=== PATIENT | male | born 1940 | race Caucasian/White ===

== ENCOUNTER 2019-07-02 07:30 | Emergency (ER) | payer BC, MEDICARE ==
--- NOTE | 2019-07-02 08:37 | EDM.PDOC ---
ED HPI GENERAL MEDICAL PROBLEM - General Chief Complaint: General Stated Complaint: FEVER, MUSCLE ACHES, UPSET STOMACH Time Seen by Provider: 07/02/19 08:15 Source of Information: Reports: Patient History Limitations: Reports: No Limitations - History of Present Illness INITIAL COMMENTS - FREE TEXT/NARRATIVE: 79-year-old male just returned from [place] 4 days ago, and over the last 24 hours is just felt a little off with some mild muscle aches. He checked his temperature this morning and it was 99.5 so came in to be checked for COVID. He has no respiratory symptoms. He has mild nausea but he did "drink some beer " last night but that usually does not bother him. No diarrhea, no sore throat or headache. He has no known exposure to COVID and his seems fine. He would like to get tested so he can get out and go fishing. Onset: Unknown/Unsure Associated Symptoms: Reports: Other (Low-grade fever, no chills) - Related Data Allergies Allergy/AdvReac Type Severity Reaction Status Date / Time codeine Allergy Itching Verified 07/02/19 07:51 Home Meds: Home Meds Brimonidine Tartrate/Timolol [Combigan Eye Drops] 1 drop EYEBOTH BID 08/03/13 [ History] Omeprazole [Prilosec] 20 mg PO DAILY 08/03/13 [History] Travoprost [Travatan Z 0.004% Ophth Soln] 1 drop EYEBOTH BEDTIME 08/03/13 [ History] Warfarin [Coumadin] 5 mg PO DAILY 08/03/13 [History] Past Medical History HEENT History: Reports: Impaired Vision, Other (See Below) Other HEENT History: [place] Musculoskeletal History: Reports: Arthritis Neurological History: Reports: None Hematologic History: Reports: Anticoagulation Therapy Oncologic (Cancer) History: Reports: Other (See Below) - Infectious Disease History Infectious Disease History: Reports: Chicken Pox, Measles, Mumps, Pertussis ( Whooping Cough), Shingles - Past Surgical History Head Surgeries/Procedures: Reports: None HEENT Surgical History: Reports: Adenoidectomy, Cataract Surgery, Tonsillectomy Neurological Surgical History: Reports: Sacral Spine Musculoskeletal Surgical History: Reports: Hip Replacement, Shoulder Replacement Oncologic Surgical History: Reports: None Social & Family History - Tobacco Use Smoking Status *Q: Former Smoker Used Tobacco, but Quit: Yes Month/Year Tobacco Last Used: 1999 Second Hand Smoke Exposure: No - Caffeine Use Caffeine Use: Reports: Coffee - Recreational Drug Use Recreational Drug Use: No ED ROS GENERAL - Review of Systems Review Of Systems: See Below Constitutional: Reports: Fever, Malaise (Very mild malaise). Denies: Chills HEENT: Reports: No Symptoms Respiratory: Denies: Shortness of Breath, Cough Cardiovascular: Denies: Chest Pain GI/Abdominal: Reports: Nausea. Denies: Abdominal Pain, Vomiting Musculoskeletal: Reports: Muscle Pain (Generalized mild muscle aches) Skin: Reports: No Symptoms Neurological: Reports: No Symptoms. Denies: Dizziness, Headache Psychiatric: Reports: No Symptoms ED EXAM, GENERAL - Physical Exam Exam: See Below Exam Limited By: No Limitations General Appearance: Alert, No Apparent Distress Eye Exam: Bilateral Eye: Normal Inspection Throat/Mouth: Normal Inspection Head: Atraumatic Respiratory/Chest: No Respiratory Distress, Lungs Clear Cardiovascular: Regular Rate, Rhythm Extremities: Normal Inspection. No: Pedal Edema Neurological: Alert, Oriented Psychiatric: Normal Affect, Normal Mood Course - Vital Signs Last Recorded V/S: Last Vital Signs Temp 99.6 F 07/02/19 07:51 Pulse 82 07/02/19 07:51 Resp 16 07/02/19 07:51 BP 169/71 H 07/02/19 07:51 Pulse Ox 94 L 07/02/19 07:51 - Re-Assessments/Exams Free Text/Narrative Re-Assessment/Exam: 07/02/19 08:35 Physical exam is normal and temperature now is 99.6. Patient is now asking if COVID testing is necessary. I told him that if we do a Covid test he should isolate until the results are back which is 48 hours from now and he did not want to do that so changed his mind about getting tested unless he worsens. No further work-up is needed, he will return if his temperature gets over 100 or he starts developing respiratory symptoms. Departure - Departure Time of Disposition: 08:43 Disposition: Home, Self-Care 01 Clinical Impression: Myalgia - Discharge Information Instructions: Muscle Pain, Adult Referrals: PCP,None [Primary Care Provider] - Forms: ED Department Discharge Care Plan Goals: Increase activity as tolerated, and return anytime if worsening such as temperature over 100.5, chills, or developing cough or respiratory symptoms like runny nose or sore throat. Sepsis Event Note - Evaluation Sepsis Screening Result: No Definite Risk - Focused Exam Vital Signs: Vital Signs Temp Pulse Resp BP Pulse Ox 07/02/19 07:51 99.6 F 82 16 169/71 H 94 L 07/02/19 07:49 99.6 F 82 16 169/71 H 94 L Date Exam was Performed: 07/02/19 Time Exam was Performed: 09:18
== END 2019-07-02 08:43 | disposition home or self-care (01) ==
LOC: JP.ED 07:30
DX: M79.10 Myalgia, unspecified site (principal); R11.0 Nausea; Z88.5 Allergy status to narcotic agent; Z79.899 Other long term (current) drug therapy; Z79.01 Long term (current) use of anticoagulants; Z87.891 Personal history of nicotine dependence
CPT/HCPCS: 99283

== ENCOUNTER 2021-08-07 09:29 | Emergency (ER) | payer MEDICARE | END 2021-08-07 12:37 | disposition home or self-care (01) | LOC: JP.ED 09:29 | DX: I44.0 Atrioventricular block, first degree (principal); R00.2 Palpitations; Z88.5 Allergy status to narcotic agent; Z79.899 Other long term (current) drug therapy; Z79.01 Long term (current) use of anticoagulants | CPT/HCPCS: 36415; 71046; 71046-26; 80048; 83735; 83880; 84443; 84484; 85025; 85610; 86618; 93005; 93010; 99283; 99285-25 ==

== ENCOUNTER 2021-09-10 16:27 | Emergency (ER) | payer MEDICARE ==
[2021-09-10 17:46] LABS: ESTIMATED GFR 75 mL/min (>60)
== END 2021-09-10 18:31 | disposition home or self-care (01) ==
LOC: JP.ED 16:27
DX: J40 Bronchitis, not specified as acute or chronic (principal); Z88.5 Allergy status to narcotic agent; Z79.899 Other long term (current) drug therapy; Z20.822 Contact with and (suspected) exposure to COVID-19
CPT/HCPCS: 36415; 80053; 82550; 85025; 86140; 86618; 99283; U0002

== ENCOUNTER 2022-08-20 09:23 | Emergency (ER) | payer MEDICARE ==
[2022-08-20] MEDS ORDERED: Sodium Chloride 0.9% 10 ML Syringe FLUSH PRN (10:07)
[2022-08-20] MEDS ORDERED: Lactated Ringers 1,000 ML IV ONE (10:07)
[2022-08-20 10:20] LABS: BASOPHILS ABSOLUTE AUTO 0.11 K/uL (0.00-0.10); BASOPHILS PERCENT AUTO 0.6 % (0.1-1.3); EOSINOPHILS ABSOLUTE AUTO 0.25 K/uL (0.00-0.40); EOSINOPHILS PERCENT AUTO 1.3 % (0.0-5.4); HEMATOCRIT 48.8 % (38.4-49.7); HEMOGLOBIN 16.1 g/dL (12.9-16.9); IMMATURE GRAN ABSOLUTE AUTO 0.22 K/uL (0.00-0.23); IMMATURE GRAN PERCENT AUTO 1.1 % (0.0-0.7); LYMPHOCYTES ABSOLUTE AUTO 3.62 K/uL (0.8-3.3); LYMPHOCYTES PERCENT AUTO 18.6 % (11.4-47.7); MEAN CORPUSCULAR HEMOGLOBIN 29.5 pg (31.6-35.5); MEAN CORPUSCULAR VOLUME 89.5 fL (81.4-99.0); MONOCYTES PERCENT AUTO 9.7 % (3.3-12.6); NEUTROPHILS ABSOLUTE AUTO 13.39 K/uL (1.0-7.6); NEUTROPHILS PERCENT AUTO 68.7 % (40.0-78.1); PLATELET COUNT,PLT 230 K/uL (130-375); RED BLOOD CELL COUNT 5.45 M/uL (4.14-5.76); WHITE BLOOD CELL COUNT,WBC 19.5 K/uL (3.2-11.0)
[2022-08-20 10:30] LABS: APPEARANCE,URINE CLEAR (CLEAR); BILIRUBIN,URINE NEGATIVE (NEGATIVE); COLOR,URINE YELLOW (YELLOW); GLUCOSE,URINE NEGATIVE (NEGATIVE); KETONES,URINE NEGATIVE (NEGATIVE); LEUKOCYTE ESTERASE,URINE NEGATIVE (NEGATIVE); NITRITE,URINE NEGATIVE (NEGATIVE); OCCULT BLOOD,URINE TRACE-INTACT (NEGATIVE); PROTEIN,URINE NEGATIVE (NEGATIVE); UROBILINOGEN,URINE 0.2 EU/dL (0.2-1.0)
[2022-08-20 10:40] LABS: INR 2.9; PROTHROMBIN TIME 27.1 sec (9.2-10.6)
[2022-08-20 10:42] LABS: A/G RATIO 0.7 (1.2-2.2); ALANINE AMINOTRANSFERASE,ALT 30 U/L (12-78); ALKALINE PHOSPHATASE 84 U/L (46-116); ASPARTATE AMNIOTRANSFERASE,AST 27 U/L (15-37); BILIRUBIN TOTAL 0.6 mg/dL (0.2-1.0); BLOOD UREA NITROGEN,BUN 18 mg/dL (7-18); CALCIUM 8.9 mg/dL (8.5-10.1); CARBON DIOXIDE,CO2 30 mmol/L (21-32); CHLORIDE,CL 100 mmol/L (100-108); CREATININE 1.1 mg/dL (0.8-1.3); EST CRCL DRUG DOSING (CG) 47.55 mL/min; ESTIMATED GFR 66 mL/min (>60); GLUCOSE RANDOM 106 mg/dL (74-106); POTASSIUM,K 4.8 mmol/L (3.6-5.2); PROTEIN TOTAL,TP 7.2 g/dL (6.4-8.2); SODIUM,NA 136 mmol/L (140-148); TROPONIN I HIGH SENSITIVITY 6.9 pg/mL (<=60.3)
[2022-08-20 10:43] LABS: ANION GAP 10.8 mmol/L (5.0-14.0)
[2022-08-20 10:46] LABS: AMORPHOUS SEDIMENT,URINE NOT SEEN; BACTERIA,URINE NOT SEEN; EPITHELIAL CELLS,URINE NOT SEEN; MUCUS,URINE NOT SEEN; RBC,URINE NOT SEEN (0-5); WBC,URINE NOT SEEN (0-5)
== END 2022-08-20 12:33 | disposition home or self-care (01) ==
LOC: JP.ED 09:23
DX: J40 Bronchitis, not specified as acute or chronic (principal); Z87.891 Personal history of nicotine dependence; Z79.01 Long term (current) use of anticoagulants; Z79.899 Other long term (current) drug therapy; Z88.5 Allergy status to narcotic agent
CPT/HCPCS: 36415; 71046; 80053; 81001; 83880; 84484; 85025; 85379; 85610; 99285; J3490; J7120

== ENCOUNTER 2022-09-28 08:03 | Emergency (ER) | payer MEDICARE | END 2022-09-28 09:21 | disposition home or self-care (01) | LOC: JP.ED 08:03 | DX: M62.830 Muscle spasm of back (principal); Z86.711 Personal history of pulmonary embolism; Z87.891 Personal history of nicotine dependence; Z79.01 Long term (current) use of anticoagulants; Z79.899 Other long term (current) drug therapy | CPT/HCPCS: 99283 ==

== ENCOUNTER 2022-10-08 08:55 | Emergency (ER) | payer MEDICARE ==
[2022-10-08 10:28] LABS: HEMATOCRIT 44.6 % (38.4-49.7); HEMOGLOBIN 14.7 g/dL (12.9-16.9); MEAN CORPUSCULAR HEMOGLOBIN 29.4 pg (31.6-35.5); MEAN CORPUSCULAR VOLUME 89.2 fL (81.4-99.0)
[2022-10-08 10:29] LABS: BASE EXCESS VENOUS 2.1 mm/L; BICARBONATE,VENOUS 26.5 mmol/L; CARBOXYHEMOGLOBIN 1.8 % (0.0-1.6); METHEMOGLOBIN 0.8 %; OXYHEMOGLOBIN 83.8 %; PCO2 VENOUS 42.5 mm/Hg; PH,VENOUS 7.412 (7.350-7.450); PO2 VENOUS 51.9 mm/Hg; TOTAL HEMOGLOBIN 15.1 g/dL (13.5-18.0)
[2022-10-08] MEDS: Albuterol/Ipratropium 3.0-0.5 MG/3 ML Neb Soln NEB ONE (10:45)
[2022-10-08 10:46] LABS: INR 3.5; PROTHROMBIN TIME 33.1 sec (9.2-10.6)
[2022-10-08 10:57] LABS: A/G RATIO 0.9 (1.2-2.2); ALANINE AMINOTRANSFERASE,ALT 24 U/L (12-78); ALBUMIN 3.1 g/dL (3.4-5.0); ALKALINE PHOSPHATASE 75 U/L (46-116); ASPARTATE AMNIOTRANSFERASE,AST 21 U/L (15-37); BILIRUBIN TOTAL 0.5 mg/dL (0.2-1.0); BLOOD UREA NITROGEN,BUN 15 mg/dL (7-18); CALCIUM 8.6 mg/dL (8.5-10.1); CARBON DIOXIDE,CO2 28 mmol/L (21-32); CHLORIDE,CL 102 mmol/L (100-108); EST CRCL DRUG DOSING (CG) 51.41 mL/min; ESTIMATED GFR 74 mL/min (>60); GLUCOSE RANDOM 108 mg/dL (74-106); POTASSIUM,K 4.4 mmol/L (3.6-5.2); PRO B-TYPE NATRIUR PEPT,BNPPRO 161 pg/mL (5-450); PROTEIN TOTAL,TP 6.7 g/dL (6.4-8.2); SODIUM,NA 137 mmol/L (140-148)
[2022-10-08 10:58] LABS: ANION GAP 11.4 mmol/L (5.0-14.0)
[2022-10-08] MEDS: Sodium Chloride 0.9% 75 ML IV SCH (12:12)
[2022-10-08] MEDS: Iopamidol 755 Mg/ML 100 ML Bottle IV ONE (12:12)
[2022-10-08 12:26] LABS: APPEARANCE,URINE CLEAR (CLEAR); BILIRUBIN,URINE NEGATIVE (NEGATIVE); COLOR,URINE YELLOW (YELLOW); GLUCOSE,URINE NEGATIVE (NEGATIVE); KETONES,URINE NEGATIVE (NEGATIVE); LEUKOCYTE ESTERASE,URINE NEGATIVE (NEGATIVE); NITRITE,URINE NEGATIVE (NEGATIVE); OCCULT BLOOD,URINE NEGATIVE (NEGATIVE); PH,URINE 6.5 (5.0-8.0); PROTEIN,URINE NEGATIVE (NEGATIVE); UROBILINOGEN,URINE 0.2 EU/dL (0.2-1.0)
[2022-10-08 12:33] LABS: AMORPHOUS SEDIMENT,URINE RARE; BACTERIA,URINE NOT SEEN; EPITHELIAL CELLS,URINE NOT SEEN; MUCUS,URINE NOT SEEN; RBC,URINE 0-5 (0-5); WBC,URINE 0-5 (0-5)
== END 2022-10-08 13:28 | disposition home or self-care (01) ==
LOC: JP.ED 08:55
DX: R07.81 Pleurodynia (principal); R09.1 Pleurisy; Z20.822 Contact with and (suspected) exposure to COVID-19; Z79.01 Long term (current) use of anticoagulants; Z86.79 Personal history of other diseases of the circulatory system
CPT/HCPCS: 36415; 71046; 71275; 80053; 81001; 82803; 83605; 83880; 84145; 84484; 85027; 85379; 85610; 93005; 94640; 99285; J3490; Q9967; U0002; J7620